=== PATIENT | female | born 1975 | race American Indian/Alaskan Native ===

== ENCOUNTER 2018-06-26 16:00 | Emergency (ER) | payer SELFPAY ==
--- NOTE | 2018-06-26 16:38 | Emergency Department Report ---
HPI - General Chief Complaint: Sore Throat Time Seen by Provider: 06/26/18 16:23 - HPI HPI: This is a 42-year-old female here report that she is having sore throat, cough, nausea headache and decreased appetite and generalized body ache 3 days. She also reports for a history of tongue but she says she does not have any autoimmune or she is not immunocompromised. Sore throat is 9 out of 10. Pain is worse with swallowing. No drooling noted. Reports some nasal congestion and runny nose. Patient said that she works at the [employer] and this Y she is having this cold. Reported that she had temperature to some medication this morning. Denies any shortness of breath, wheezing or nausea or vomiting. Denies any abdominal pain or any urinary symptoms. ED Past Medical Hx - Past Medical History Previous Medical History?: Yes Hx Hypertension: Yes - Surgical History Past Surgical History?: Yes Additional Surgical History: X2 - Family History Family history: hypertension - Social History Smoking Status: Never Smoker Substance Use Type: None - Medications Home Medications: Home Medications Medication Instructions Recorded Confirmed Last Taken Type Amlodipine Besylate [Norvasc] 2.5 mg PO DAILY #30 tab 10/14/14 Unknown Rx Cetirizine HCl [ZyrTEC] 10 mg PO QAM 14 Days #14 capsule 06/26/18 Unknown Rx Fluconazole [Diflucan TAB] 150 mg PO ONCE 3 Days #3 tablet 06/26/18 Unknown Rx Fluticasone [Flonase] 1 spray NS QDAY 14 Days #1 bottle 06/26/18 Unknown Rx Ibuprofen [Motrin] 800 mg PO Q8HR PRN #12 tablet 06/26/18 Unknown Rx Nystatin [Nystatin SUSP] 5 ml PO QID 7 Days #140 ml 06/26/18 Unknown Rx Ondansetron [Zofran ODT TAB] 8 mg PO Q8HR PRN #12 tab.rapdis 06/26/18 Unknown Rx Oseltamivir [Tamiflu] 75 mg PO BID 5 Days #10 cap 06/26/18 Unknown Rx guaiFENesin/CODEINE [Robitussin AC] 10 ml PO QHS PRN #70 oral.liqd 06/26/18 Unknown Rx ED Review of Systems ROS: Stated complaint: SORE THROAT/CHILLS HEADACHE Other details as noted in HPI Constitutional: chills, fever Eyes: denies: eye discharge ENT: throat pain, congestion, other (thrush thrush). denies: ear pain Respiratory: cough. denies: shortness of breath, SOB with exertion, SOB at rest, stridor, wheezing Cardiovascular: denies: chest pain, palpitations, edema, syncope ( yesterday that she was this where she) Gastrointestinal: denies: abdominal pain, nausea, vomiting, diarrhea, hematemesis, hematochezia ( ) Genitourinary: denies: urgency, dysuria, frequency, hematuria, discharge Musculoskeletal: denies: back pain, joint swelling, arthralgia, myalgia Skin: denies: rash Neurological: denies: headache, weakness, numbness, paresthesias, abnormal gait, vertigo Physical Exam - Physical Exam Vital Signs: Vital Signs 06/26/18 16:07 Temperature 99.2 F Pulse Rate 73 Respiratory 20 Rate Blood Pressure 143/94 O2 Sat by Pulse 100 Oximetry General: This is a 42-year-old female well-nourished well-developed in no acute distress Physical Exam: Head: Normocephalic, atraumatic Ears:BIateral TM congested without erythema and loss of bony landmarks. Sonny EAC with normal exam. No mastoid bone tenderness. Mouth: Moist, no pharyngeal erythema or exudate . Positive oral thrush the tongue that is not removable with tongue blade. UVULA midline and oral airways patent. No peritonsillar abscess. No drooling noted. Neck: Nontender to palpate, supple, normal range of motion. No adenopathy. No c- spine tenderness. Nose: Bilateral nasal mucosa congested/erythema with clear drainage. Maxillary and frontal sinuses non-tender to palpate. Eyes: Bilateral Sclerae and conjunctiva without injection. Bilateral pupils equal and reactive to light. Bilateral lids are normal. Normal ac commodation.BEOMI Lungs: Clear to auscultate bilaterally, no rhonchi wheezes or rales. Normal work of breathing and no chest wall tenderness CV: S1, S2. Regular rate and rhythm negative murmur. Capillary refill is less than 3 seconds Abdomen: Nontender to palpation in all quadrants: No guarding or rebound tenderness. Positive bowel sounds in all quadrants Extremity: No clubbing, cyanosis or edema. +2 pulses in all extremities and no neurovascular compromise Skin: Clean dry and intact, no rashes or lesions Psych: Normal mood and behavior ED Course Vital Signs 06/26/18 16:07 Temperature 99.2 F Pulse Rate 73 Respiratory 20 Rate Blood Pressure 143/94 O2 Sat by Pulse 100 Oximetry - Reevaluation(s) Reevaluation #1: 06/26/18 20:00 Patient received Motrin 800 mg by mouth for pain. ED Medical Decision Making - Radiology Data Radiology results: report reviewed X-ray of the chest 2 view reviewed no evidence of acute cardiopulmonary processes Findings [facility] [address] [place] [address] XRay Report Signed Patient: SANKET BRYAN MR#: [id number] : 1975 Acct:[id number] Age/Sex: 42 / F ADM Date: 06/26/18 Loc: ED Attending Dr: Ordering Physician: LIAM MARIA Date of Service: 06/26/18 Procedure(s): XR chest routine 2V Accession Number(s): [id number] cc: LIAM MARIA Fluoro Time In Minutes: FINAL REPORT EXAM: XR CHEST ROUTINE 2V HISTORY: cough, fever 1 month TECHNIQUE: 2 view examination of the chest PRIORS: 05/22/2018 FINDINGS: Slight thoracic spine curvature with mid left apex. There is slight degenerative spondylosis of the thoracic spine. No acute displaced fracture There is no consolidated pneumonia, effusion, or pneumothorax. Cardiac silhouette size is normal without vascular congestion. IMPRESSION: No evidence of acute cardiopulmonary disease Transcribed By: BAL Dictated By: JIMMY LEAHY MD Electronically Authenticated By: JIMMY LEAHY MD Signed Date/Time: 06/26/181851 DD/ 50 TD/TT: 06/26/181850 - Medical Decision Making This is a 42-year-old female here with upper respiratory symptoms along with thrush to her tongue. She denies any autoimmune or immunocompromise status. I discussed the patient that she needs to get full STD check at the health [facility] at her primary care office as it not normal for healthy person to have thrush and they are telling to voice understanding. Patient chest x-ray negative findings, flu and strep was negative . I discussed with the patient x- ray and lab findings she was understanding and I also discussed with her that is very important that she go and get testing for STD to include HIV. She was given Motrin and emergency room for pain and discharged home a prescription for guaifenesin with codeine, Zofran, Diflucan, Tamiflu, Zyrtec, Flonase and nystatin swish and spit.Patient to follow-up with her primary care physician in 3 days. Discharged home with stable vital signs and nontoxic in appearance. - Differential Diagnosis PNA, bronchitis, pleurisy, upper respiratory with cough and congestion, vir Critical care attestation.: If time is entered above; I have spent that time in minutes in the direct care of this critically ill patient, excluding procedure time. ED Disposition Clinical Impression: Viral syndrome, Cough in adult, Oral thrush Pharyngitis Qualifiers: Pharyngitis/tonsillitis etiology: other specified organisms Qualified Code(s): J02.8 - Acute pharyngitis due to other specified organisms Disposition: - TO HOME OR SELFCARE Is pt being admited?: No Does the pt Need Aspirin: No Condition: Stable Instructions: Oral Candidiasis (ED), Viral Syndrome (ED), Acute Cough (ED) Additional Instructions: Please follow up with the primary care doctor or if he do not have one follow-up with outside Medical Center for STD testing and follow-up viral syndrome with cough and thrush. Please call and Friday to schedule an appointment for follow- up visits and 3-5 days. Take medication as prescribed. See good Rx card for discount on prescription. Rest for 72 hours and take Motrin for pain and/or fever. Increasing fluid intake to 2-3 L of water daily. Please do not drive or operate heavy machinery while taking guaifenesin with codeine cough medicine as a cause drowsiness If his symptoms worsens, return to the emergency room Referrals: SHADE ROWLAND MD [Primary Care Provider] - 3-5 Days [facility] [Outside] - 3-5 Days Forms: Accompanied Note, Work/School Release Form(ED)
[2018-06-26] MEDS ORDERED: IBUPROFEN PO ONE (16:39)
--- NOTE | 2018-06-26 18:52 | XRay Report ---
FINAL REPORT EXAM: XR CHEST ROUTINE 2V HISTORY: cough, fever 1 month TECHNIQUE: 2 view examination of the chest PRIORS: 05/22/2018 FINDINGS: Slight thoracic spine curvature with mid left apex. There is slight degenerative spondylosis of the thoracic spine. No acute displaced fracture There is no consolidated pneumonia, effusion, or pneumothorax. Cardiac silhouette size is normal without vascular congestion. IMPRESSION: No evidence of acute cardiopulmonary disease
[2018-06-28 12:28] VITALS: BP 143/94
== END 2018-06-26 20:24 | disposition home or self-care (01) ==
LOC: ED 16:00
DX: B34.9 Viral infection, unspecified (principal); J02.9 Acute pharyngitis, unspecified; B37.0 Candidal stomatitis; I10 Essential (primary) hypertension
CPT/HCPCS: 71046; 87116; 87400; 87430